=== PATIENT | female | born 1980 | race Hispanic/Latino ===

== ENCOUNTER 2023-02-14 16:05 | Emergency (ER) | payer OTHER, SELFPAY ==
--- NOTE | ~2023-02-14 | XR_ITS ---
EXAM: XR hand LT min 3V DATE: 02/14/2023 16:29 HISTORY: heavy object fell on hand, swelling/bruise 4 5th digits . COMPARISON: None available. FINDINGS: Normal mineralization. No fracture or dislocation. No lytic or blastic lesion. Joint space s are maintained. No erosion or periosteal change. Soft tissues within normal limits. IMPRESSION: No acute osseous finding in the left hand. Reviewed, dictated and finalized at location K. [facility]
[2023-02-14 16:18] VITALS: BP 106/62; PULSE 58; RESP 16; TEMP 36.9; O2SAT 98
--- NOTE | 2023-02-14 16:36 | ED.GENADULT ---
HPI - General Adult General Chief complaint: Extremity Injury, Upper Stated complaint: Left Hand Pain Source: patient Mode of arrival: ambulatory Limitations: no limitations History of Present Illness HPI narrative: Patient presents for evaluation of left hand pain following an injury that occurred just prior to arrival. She indicates there was a lamp on the top of her refrigerator which fell and struck her in the left, after she bumped into the refrigerator. She immediately had pain and swelling in the left hand. She rates pain at time of injury 10/10 in severity. She elevated her hand and swelling and pain have decreased since that time. She has bruising in the fourth and fifth digits of the left hand. She has decreased ROM in the 4th and 5th digits of the left hand. Movement makes her pain worse. She is right hand dominant. She does have numbness in the lateral aspect of the left hand overlying the MCP joints of the 4th and 5th digits of the left hand. She reports dysuria that started this morning. She has a history of UTI's and this feels similar. No urinary frequency, hesitancy, hematuria, abdominal pain/low back pain, fever, chills, nausea, vomiting, vaginal bleeding or discharge. Related Data Allergies Allergy/AdvReac Type Severity Reaction Status Date / Time codeine Allergy Unknown Unknown Verified 02/14/23 16:12 Review of Systems Review of Systems: CONSTITUTIONAL: Denies fever, chills, or sweats. EYES: Denies visual changes, redness, or discharge. ENT: Denies rhinorrhea, congestion, sore throat, or otalgia. CARDIOVASCULAR: Denies chest pain, palpitations, or edema. RESPIRATORY: Denies cough or dyspnea. GASTROINTESTINAL: Denies abdominal pain, nausea, vomiting, or diarrhea. GENITOURINARY: Reports dysuria. Denies urinary frequency, urgency, hesitancy, hematuria. SKIN: Reports bruising to the fourth and fifth digits of the left hand MUSCULOSKELETAL:Reports pain in the left hand. NEUROLOGIC: Reports numbness in left hand. Denies headache, dizziness, or weakness. PSYCHIATRIC: Denies anxiety or depression. [facility] Past Medical History Medical History No pertinent past medical history Surgical History Surgical History No pertinent past surgical history Family History Family History Mother Family history non-contributory Social History Social History Smoking status: Never smoker Substance use: never Living arrangements: with family Gender identity (if verbalized by the patient): Female Sexual Orientation (if Verbalized by the Patient): Straight or Heterosexual Spiritual care concerns: No Exam Narrative: GENERAL: Well-appearing, well-nourished, and in no acute distress. HEAD: Normocephalic, atraumatic. EYES: PERRLA and EOMI. ENT: Nares clear, no rhinorrhea or epistaxis. Mucous membranes moist. Oropharynx without tonsillar hypertrophy exudate or other lesions. Bilateral TMs pearly jernigan nonbulging NECK: Supple. No adenopathy or masses. No carotid bruits or JVD CHEST: Clear to auscultation. No respiratory distress. No wheezes rales or rhonchi HEART: Regular rate and rhythm. No murmur heard. Normal peripheral pulses. ABDOMEN: Soft, nontender, nondistended, normal active bowel sounds. EXTREMITIES: Decreased ROM of the MCP joint and PIP joints of the 4th and 5th digits of the left hand. 5/5 hand knock out hand strength on the right. 4/5 hand knock out hand strength on the left. Tenderness over the distal aspect of the left 4th and 5th metacarpals, 4th and 5th MCP joints and the proximal phalanges of the 4th and 5th digits. SKIN: There is ecchymosis noted overlying the dorsal aspect of the MCP joints of the 4th and 5th digits of the left hand and over proximal phalanx of the fif
[2023-02-14] MEDS: IBUPROFEN 400 MG TABLET 800 MG PO (16:48)
== END 2023-02-14 17:16 | disposition home or self-care (01) ==
PROVIDERS: Emergency Provider Nurse Practitioner; PCP Registered Nurse
DX: S60.222A Contusion of left hand, initial encounter (principal); W20.8XXA Other cause of strike by thrown, projected or falling object, initial encounter; N30.00 Acute cystitis without hematuria
CPT/HCPCS: 73130; 81003; 81025; 87086; 87088; 87147; 99213; A9270; G0463